=== PATIENT | male | born 1985 | race Caucasian/White ===

== ENCOUNTER 2019-11-12 00:41 | Emergency (ER) | payer SELFPAY ==
[2019-11-12] MEDS ORDERED: Sodium Chloride 0.9% 2.5 ML Syringe FLUSH PRN (01:13)
[2019-11-12] MEDS ORDERED: Sodium Chloride 0.9% 1,000 ML IV ONE (01:13)
[2019-11-12] MEDS ORDERED: Sodium Chloride 0.9% 10 ML Syringe FLUSH PRN (01:13)
[2019-11-12 01:56] LABS: BLOOD UREA NITROGEN,BUN 9 mg/dL (7.0-18.0); CARBON DIOXIDE,CO2 28.8 mmol/L (21.0-32.0); CHLORIDE,CL 98 mmol/L (98-107); GLUCOSE RANDOM 93 mg/dL (74-106); POTASSIUM,K 3.9 mmol/L (3.5-5.1); SODIUM,NA 137 mmol/L (136-148)
--- NOTE | 2019-11-12 02:20 | EDM.PDOC ---
ED HPI GENERAL MEDICAL PROBLEM - General Chief Complaint: General Stated Complaint: DEHYDRATION, WEIGHT LOSS, ABDOMINAL PAIN Time Seen by Provider: 11/12/19 01:13 - History of Present Illness INITIAL COMMENTS - FREE TEXT/NARRATIVE: History of present illness: 33-year-old male presenting with generalized fatigue, decreased appetite and feels that he is "wasting away". Has previously been taking Kratom chronically for his chronic abdominal pain and is worried that that has somehow impacted his ability to take in food and nutrients. He reports he really has not been able to eat any meat as his body seems to just not want to take that and he has an immediate reaction and spits it out. Does not feel that the food is getting stuck anywhere in his esophagus. He has basically only been eating spaghetti O's. Review of systems: As per history of present illness and below otherwise all systems reviewed and negative. Past medical history: As per history of present illness and as reviewed below otherwise noncontributory. Constipation Surgical history: As per history of present illness and as reviewed below otherwise noncontributory. Social history: No reported history of drug or alcohol abuse. No tobacco Family history: As per history of present illness and as reviewed below otherwise noncontributory. Physical exam: GEN: no acute distress, well appearing HEENT: Atraumatic, normocephalic, mucous membranes moist, Lymph: No axillary, inguinal, cervical, or supraclavicular lymph nodes palpable Neck: supple, nontender, trachea midline. Lungs: No respiratory distress. Heart: RRR Abdomen: Soft, nondistended, nontender. Back: nontender Extremities: Atraumatic. Neurovascularly intact. Neuro: Awake, alert, oriented. Neuro Exam nonfocal. Skin: warm, dry, no lesions Psych: Appears somewhat anxious Diagnostics: [] Therapeutics: [] MDM: Impression: [] Plan: [] Definitive disposition and diagnosis as appropriate pending reevaluation and review of above. stomach Pain Score (Numeric/FACES): 2 - Related Data Allergies Allergy/AdvReac Type Severity Reaction Status Date / Time No Known Allergies Allergy Verified 11/12/19 00:52 Home Meds: Home Meds . [No Known Home Meds] 11/12/19 [History] Past Medical History - Infectious Disease History Infectious Disease History: Reports: Chicken Pox - Past Surgical History HEENT Surgical History: Reports: Oral Surgery Social & Family History - Family History Family Medical History: Noncontributory - Tobacco Use Smoking Status *Q: Never Smoker - Caffeine Use Caffeine Use: Reports: Energy Drinks Other Caffeine Use: monster energy drinks and kratom - Recreational Drug Use Recreational Drug Use: No ED ROS GENERAL - Review of Systems Review Of Systems: See Below (See HPI) ED EXAM, GENERAL - Physical Exam Exam: See Below (See HPI) EKG INTERPRETATION EKG Interpretation Comments: EKG performed today at 2:46 AM, sinus rhythm, rate 84, right bundle branch block, saddleback appearance in V2. QTc 430. No STEMI. Course - Vital Signs Text/Narrative:: Patient with generalized fatigue, taking Kratom supplement, no acute abnormal findings on lab work here today. EKG sinus but with slight saddleback appearance in V2, concerning for potential Brugada although patient is otherwise completely asymptomatic and has not had any cardiac arrest or syncopal episodes nor any family history of sudden cardiac . Will refer for cardiology follow-up. Discussed with patient absolute cessation immediately of Kratom. Last Recorded V/S: Last Vital Signs Temp 98.3 F 11/12/19 00:52 Pulse 98 11/12/19 00:58 Resp 17 11/12/19 00:52 BP 147/95 H 11/12/19 00:52 Pulse Ox 99 11/12/19 00:52 - Orders/Labs/Meds Orders: Active Orders 24 hr Category Date Time Status EKG 12 Lead [EKG Documentation Completion] [RC] STAT Care 11/12/19 02:21 Active Sodium Chloride 0.9% [Saline Flush] Med 11/12/19 01:13 Active 10 ml FLUSH ASDIRECTED PRN Sodium Chloride 0.9% [Saline Flush] Med 11/12/19 01:13 Active 2.5 ml FLUSH ASDIRECTED PRN Saline Lock Insert [OM.PC] Stat Oth 11/12/19 01:13 Ordered Medication Orders Sodium Chloride (Saline Flush) 10 ml FLUSH ASDIRECTED PRN PRN Reason: Keep Vein Open Last Admin: 11/12/19 01:29 Dose: 10 ml Documented by: MARVA Sodium Chloride (Saline Flush) 2.5 ml FLUSH ASDIRECTED PRN PRN Reason: Keep Vein Open Last Admin: 11/12/19 01:28 Dose: 2.5 ml Documented by: MARVA Labs: Laboratory Tests 11/12/19 11/12/19 11/12/19 Range/Units 01:15 01:19 01:19 WBC 5.29 (4.0-11.0) K/uL RBC 5.18 (4.50-5.90) M/uL Hgb 15.6 (13.0-17.0) g/dL Hct 42.1 (38.0-50.0) % MCV 81.3 (80.0-98.0) fL MCH 30.1 (27.0-32.0) pg MCHC 37.1 H (31.0-37.0) g/dL RDW Std Deviation 34.6 (28.0-62.0) fl RDW Coeff of Chioma 12 (11.0-15.0) % Plt Count 182 (150-400) K/uL MPV 11.20 (7.40-12.00) fL Neut % (Auto) 63.1 (48.0-80.0) % Lymph % (Auto) 25.5 (16.0-40.0) % [place] % (Auto) 9.5 (0.0-15.0) % Eos % (Auto) 1.1 (0.0-7.0) % Baso % (Auto) 0.8 (0.0-1.5) % Neut # (Auto) 3.3 (1.4-5.7) K/uL Lymph # (Auto) 1.4 (0.6-2.4) K/uL [place] # (Auto) 0.5 (0.0-0.8) K/uL Eos # (Auto) 0.1 (0.0-0.7) K/uL Baso # (Auto) 0.0 (0.0-0.1) K/uL Sodium 137 (136-148) mmol/L Potassium 3.9 (3.5-5.1) mmol/L Chloride 98 (98-107) mmol/L Carbon Dioxide 28.8 (21.0-32.0) mmol/L BUN 9 (7.0-18.0) mg/dL Creatinine 1.0 (0.8-1.3) mg/dL Est Cr Clr Drug Dosing 94.76 mL/min Estimated GFR (MDRD) > 60.0 ml/min Glucose 93 (74-106) mg/dL Calcium 9.5 (8.5-10.1) mg/dL Total Bilirubin 0.4 (0.2-1.0) mg/dL AST 21 (15-37) IU/L ALT 29 (14-63) IU/L Alkaline Phosphatase 67 (46-116) U/L Total Protein 8.6 H (6.4-8.2) g/dL Albumin 4.7 (3.4-5.0) g/dL Globulin 3.9 (2.6-4.0) g/dL Albumin/Globulin Ratio 1.2 (0.9-1.6) TSH 3rd Generation 2.89 (0.36-3.74) uIU/mL Urine Color YELLOW Urine Appearance CLEAR Urine pH 6.5 (5.0-8.0) Ur Specific [place] <= 1.005 (1.001-1.035) Urine Protein NEGATIVE (NEGATIVE) mg/dL Urine Glucose (UA) NEGATIVE (NEGATIVE) mg/dL Urine Ketones NEGATIVE (NEGATIVE) mg/dL Urine Occult Blood NEGATIVE (NEGATIVE) Urine Nitrite NEGATIVE (NEGATIVE) Urine Bilirubin NEGATIVE (NEGATIVE) Urine Urobilinogen 0.2 (<2.0) EU/dL Ur Leukocyte Esterase NEGATIVE (NEGATIVE) Meds: Medications Generic Name Dose Route Start Last Admin Trade Name Freq PRN Reason Stop Dose Admin Sodium Chloride 10 ml 11/12/19 01:13 11/12/19 01:29 Saline Flush FLUSH 10 ml ASDIRECTED PRN Administration Keep Vein Open Sodium Chloride 2.5 ml 11/12/19 01:13 11/12/19 01:28 Saline Flush FLUSH 2.5 ml ASDIRECTED PRN Administration Keep Vein Open Discontinued Medications Generic Name Dose Route Start Last Admin Trade Name Freq PRN Reason Stop Dose Admin Sodium Chloride 1,000 mls @ 999 mls/hr 11/12/19 01:13 11/12/19 01:28 Normal Saline IV 11/12/19 02:13 999 mls/hr .Bolus ONE Administration - Re-Assessments/Exams Free Text/Narrative Re-Assessment/Exam: 11/12/19 03:07 All results, EKG findings and follow-up plan discussed with the patient. We discussed some possible diet progression options to avoid the patient eating SpaghettiOs. He does admit that he has also been eating banana baby food and applesauce. Discussed with patient good fats, and he will attempt to start incorporating a more balanced diet with good fats into his diet until he can be seen by GI. I did reemphasize the abnormal EKG and need for cardiology follow-up, as well as need to return to the ER immediately if he develops any passing out episodes or chest pain. He does agree to do so. He has not had any prior syncopal episodes and nor has anyone in his family have had sudden cardiac , syncope, unexpl ained or any other concerning symptoms. Departure - Departure Time of Disposition: 02:58 Disposition: Home, Self-Care 01 Clinical Impression: Weakness, Abnormal EKG - Discharge Information Instructions: Weakness, [id number], Electrocardiogram, [id number] Referrals: David Vigil MD [Physician] - 1 Day (Abn EKG, saddleback in V2, possible Brugada) Tamy Baker MD [Ordering Only Provider] - 1 Week Forms: ED Department Discharge Additional Instructions: Drink plenty of fluids. Start to slowly progress your diet. Do not eat only Sp aghettiOs. Do not take the KRatom again. Follow-up with the batting machine operator insulation listed above and the primary care clinics listed below. Is also the name of the GI physician listed, you may follow-up with their office for your chronic constipation. But the highest priority is the batting machine operator insulation. If you have any episodes of passing out, please call 911 and come to the emergency department immediately. The following information is given to patients seen in the emergency department who are being discharged to home. This information is to outline your options for follow-up care. We provide all patients seen in our emergency department with a follow-up referral. The need for follow-up, as well as the timing and circumstances, are variable depending upon the specifics of your emergency department visit. If you don't have a primary care physician on staff, we will provide you with a referral. We always advise you to contact your personal physician following an emergency department visit to inform them of the circumstance of the visit and for follow-up with them and/or the need for any referrals to a consulting specialist. The emergency department will also refer you to a specialist when appropriate. This referral assures that you have the opportunity for follow-up care with a specialist. All of these measure are taken in an effort to provide you with optimal care, which includes your follow-up. Under all circumstances we always encourage you to contact your private physician who remains a resource for coordinating your care. When calling for follow-up care, please make the office aware that this follow-up is from your recent emergency room visit. If for any reason you are refused follow-up, please contact the [facility] Emergency Department at and asked to speak to the emergency department charge nurse. [facility] [address] [place] [id number] [facility] [address] [place] [id number] Sepsis Event Note (ED) - Evaluation Sepsis Screening Result: No Definite Risk - Focused Exam Vital Signs: Vital Signs Temp Pulse Resp BP Pulse Ox 11/12/19 00:58 98 11/12/19 00:52 98.3 F 104 H 17 147/95 H 99 - My Orders Last 24 Hours: My Active Orders 11/12/19 01:13 Sodium Chloride 0.9% [Saline Flush] 10 ml FLUSH ASDIRECTED PRN Sodium Chloride 0.9% [Saline Flush] 2.5 ml FLUSH ASDIRECTED PRN Saline Lock Insert [OM.PC] Stat 11/12/19 02:21 EKG 12 Lead [EKG Documentation Completion] [RC] STAT - Assessment/Plan Last 24 Hours: My Active Orders 11/12/19 01:13 Sodium Chloride 0.9% [Saline Flush] 10 ml FLUSH ASDIRECTED PRN Sodium Chloride 0.9% [Saline Flush] 2.5 ml FLUSH ASDIRECTED PRN Saline Lock Insert [OM.PC] Stat 11/12/19 02:21 EKG 12 Lead [EKG Documentation Completion] [RC] STAT
== END 2019-11-12 03:25 | disposition home or self-care (01) ==
LOC: MW.ED 00:41
DX: R53.1 Weakness (principal); R94.31 Abnormal electrocardiogram [ECG] [EKG]; I45.10 Unspecified right bundle-branch block
CPT/HCPCS: 36415; 80053; 81003; 84443; 85025; 93005; 96360; 99285; J7030; 99283